=== PATIENT | female | born 1965 | race Caucasian/White ===

== ENCOUNTER 2018-12-26 14:07 | Emergency (ER) | payer MEDICAID ==
[~2018-12-26] VITALS: Ht 160 cm; Wt 77.1 kg
[2018-12-26 14:10] VITALS: BP_SYST 147
[2018-12-26] MEDS ORDERED: traMADol HCL HCL 50 MG TABLET (ULTRAM) PO ONE (16:15)
[2018-12-26 16:31] VITALS: BP_SYST 147
== END 2018-12-26 16:30 | disposition home or self-care (01) ==
LOC: SED 14:07
DX: M65.331 Trigger finger, right middle finger (principal); E78.00 Pure hypercholesterolemia, unspecified; I10 Essential (primary) hypertension; Z86.79 Personal history of other diseases of the circulatory system
CPT/HCPCS: 99283

== ENCOUNTER 2020-07-12 15:54 | Emergency (ER) | payer MEDICAID ==
[~2020-07-12] VITALS: Ht 160 cm; Wt 77.1 kg
[2020-07-12 16:02] VITALS: BP_SYST 164
--- NOTE | 2020-07-12 16:03 | NUR ---
Shivani bunch in ED - 07/12/20 at 1610 by SDEDTD DANNY Marquez at bedside examining patient.
--- NOTE | 2020-07-12 16:06 | NUR ---
Patient to ER bed 7 to gown for evaluation. Side rails up. Report given to TRUMAN Cifuentes.
--- NOTE | 2020-07-12 16:07 | NUR ---
Patient presented to ER C/O ear pain. Patient ambulatory to ER A&ox4, afebrile, pain 7/10, redness to both ears, bilateral swelling behind ears, no drainage noticed. Patient states she has had inner ear pain x7 days with drainage
--- NOTE | 2020-07-12 16:08 | NUR ---
ER Dr. Marquez at bedside examining patient.
[2020-07-12 16:18] VITALS: BP_SYST 162
--- NOTE | 2020-07-12 16:18 | NUR ---
Patient given written and verbal discharge instructions and verbalizes understanding. ER MD discussed with patient the results and treatment provided. Patient in stable condition. ID arm band removed. I Rx of IBUPROFEN, AMOXICILLIN given. Patient educated on pain management and to follow up with PMD. Pain Scale 5/10, PATIENT STATES SHE WILL MEDICATE WITH PERSCRIPTION . Opportunity for questions provided and answered. Medication side effect fact sheet provided.
== END 2020-07-12 16:18 | disposition home or self-care (01) ==
LOC: SED 15:54
DX: H66.93 Otitis media, unspecified, bilateral (principal); I10 Essential (primary) hypertension; E78.00 Pure hypercholesterolemia, unspecified
CPT/HCPCS: 99283

== ENCOUNTER 2020-08-25 17:04 | Emergency (ER) | payer MEDICAID ==
--- NOTE | 2020-08-25 18:14 | NUR ---
Patient left without being seen.
== END 2020-08-25 18:14 | disposition left against medical advice (07) ==
LOC: SED 17:04
DX: M79.643 Pain in unspecified hand (principal); Z53.21 Procedure and treatment not carried out due to patient leaving prior to being seen by health care provider

== ENCOUNTER 2020-10-25 01:04 | Emergency (ER) | payer MEDICAID ==
[~2020-10-25] VITALS: Ht 160 cm; Wt 77.1 kg
[2020-10-25 01:15] VITALS: BP_SYST 189
[2020-10-25] MEDS ORDERED: IBUPROFEN 600 MG TABLET PO ONE (01:30)
== END 2020-10-25 02:30 | disposition home or self-care (01) ==
LOC: SED 01:04
DX: M79.645 Pain in left finger(s) (principal); I10 Essential (primary) hypertension
CPT/HCPCS: 99283

== ENCOUNTER 2020-11-18 22:17 | Emergency (ER) | payer MEDICAID, SELFPAY ==
[~2020-11-18] VITALS: Ht 160 cm; Wt 79.8 kg
[2020-11-18 22:25] VITALS: BP_SYST 164
--- NOTE | 2020-11-18 22:25 | NUR ---
Placed in room 5. Placed on cardiac care nurse, blood pressure machine and pulse oximeter. To gown for exam. Side rails up. Report given to Summer LAUGHLIN/Nirali LAUGHLIN.
--- NOTE | 2020-11-18 22:30 | NUR ---
PT AAO AND AMBULATORY CAME IN TO ER C/O VAGINAL DISCHARGE X 1 WEEK AFTER HAVING SEX WITH PARTNER. PATIENT ALSO COMPLAINED OF PRODUCTIVE COUGH WITH WHITE/GREEN PHLEGM. HAS HISTORY OF CABG X 3 AND [place]. CURRENTLY STATES OF HAVING DISCOMFORT WHEN SHE COUGHS RATING PAIN 2/10 ON THE PAIN SCALE. WAITING FOR MD TO EVALUATE PATIENT.
--- NOTE | 2020-11-18 22:40 | NUR ---
DR. MENA AT BEDSIDE FOR EVALUATION.
[2020-11-18] MEDS ORDERED: ROSU20TA2 PO (22:41)
[2020-11-18] MEDS ORDERED: AMOX-426 PO (22:41)
[2020-11-18] MEDS ORDERED: CLOP75TA32 PO (22:41)
[2020-11-18] MEDS ORDERED: CARV6.2554 PO (22:41)
[2020-11-18] MEDS ORDERED: PHEDM120 PO (22:41)
[2020-11-18] MEDS ORDERED: ISOS30TA6 PO (22:41)
[2020-11-18] MEDS ORDERED: ASPI-859 PO (22:41)
--- NOTE | 2020-11-18 22:46 | NUR ---
PATIENT TAKEN TO XRAY VIA AMBULATORY.
--- NOTE | 2020-11-18 22:50 | NUR ---
PATIENT WAS ABLE TO GIVE URINE SPECIMEN. AMBULATED TO RESTROOM. SPECIMEN SENT TO LAB FOR ANALYSIS.
[2020-11-18 23:26] LABS: BILIRUBIN,URINE NEGATIVE (NEGATIVE); BLOOD, URINE 1+ (NEGATIVE); CLARITY/URINE CLEAR (CLEAR); COLOR,URINE YELLOW (YELLOW); GLUCOSE,URINE NEGATIVE (NEGATIVE); KETONES,URINE NEGATIVE (NEGATIVE); LEUKOCYTE ESTERASE ,URINE 3+ (NEGATIVE); NITRITE, URINE NEGATIVE (NEGATIVE); PH,URINE 5.5 (5.0-8.0); PROTEIN URINE NEGATIVE (NEGATIVE); UROBILINOGEN,URINE 0.2 (0.2-1.0)
[2020-11-18 23:34] LABS: BACTERIA,URINE FEW /HPF (None Seen); TRICHOMONAS,URINE Few /HPF (None Seen); WBC,URINE 20-50 /HPF (0-3)
--- NOTE | 2020-11-19 00:10 | NUR ---
ASSISTED WITH MD POLK WITH PELVIC EXAM. COLLECTED WET MOUNT SPECIMEN AND SENT TO LAB. COLLECTED COVID SOFTIA NASAL SWAB AND SENT TO LAB FOR ANALYSIS.
[2020-11-19] MEDS ORDERED: IPRATROPIUM/ALBUTEROL SULFATE 3 ML AMPUL.NEB (DUONEB) INH ONE (00:30)
[2020-11-19] MEDS ORDERED: IPRATROPIUM/ALBUTEROL SULFATE 3 ML AMPUL.NEB (DUONEB) ONE (00:37)
[2020-11-19] MEDS ORDERED: metroNIDAZOLE 500 MG TABLET PO ONE (00:45)
[2020-11-19] MEDS ORDERED: cefTRIAXone 500 MG in LIDOCAINE 1%, 20 ML MDV 1 ML IM ONE (00:45)
[2020-11-19 00:49] LABS: HEMOGLOBIN 14.9 g/dL (12.0-16.0); MEAN CORPUSCULAR HGB CONC 33 % (32-36)
[2020-11-19] MEDS ORDERED: cefTRIAXone 500 MG VIAL ONE (00:50)
[2020-11-19 00:53] LABS: BASOPHILS # (AUTO) 0.1 K/uL (0.0-0.2); BASOPHILS % (AUTO) 1.1 % (0.0-2.0); EOSINOPHILS # (AUTO) 0.3 K/uL (0.0-0.4); HEMATOCRIT 44.6 % (36-48); LYMPHOCYTES # (AUTO) 1.8 K/uL (1.0-5.5); LYMPHOCYTES % (AUTO) 28.4 % (20.5-51.5); MEAN CORPUSCULAR HEMOGLOBIN 29 pg (27-31); MEAN CORPUSCULAR VOLUME 88 fL (79.0-98.0); MONOCYTES # (AUTO) 0.8 K/uL (0.0-1.0); MONOCYTES % (AUTO) 12.6 % (1.7-9.3); NEUTROPHILS # (AUTO) 3.5 K/uL (1.8-7.7); NEUTROPHILS % (AUTO) 53.9 % (40.0-70.0); PLATELET COUNT (AUTO) 236 K/uL (130-430); RED BLOOD CELL COUNT(AUTO) 5.08 MIL/uL (4.2-6.2); WHITE BLOOD COUNT (AUTO) 6.4 K/uL (4.8-10.8)
[2020-11-19 01:02] LABS: ANION GAP 7 (5-15); CALCIUM 9.4 mg/dL (8.4-11.0); CHLORIDE 106 mmol/L (98-107); GLUCOSE 89 mg/dL (70-99); POTASSIUM 3.8 mmol/L (3.5-5.1); SODIUM SERUM 142 mmol/L (136-145); UREA NITROGEN, BLOOD 7 mg/dL (8-21)
--- NOTE | 2020-11-19 01:02 | NUR ---
REPORT GIVEN TO TRUMAN JEWELL.
[2020-11-19 01:11] LABS: ALANINE AMINOTRANSFERASE 105 U/L (12-78); ALBUMIN 3.5 g/dL (3.4-4.8); ASPARTATE AMINOTRANSFERASE 56 U/L (10-37); GFR AFRICAN AMERICAN 84 mL/min (>90); TOTAL BILIRUBIN 0.3 mg/dL (0.0-1.0)
[2020-11-19] MEDS ORDERED: NITR-85 PO (01:26)
[2020-11-19] MEDS ORDERED: BENZ-16 PO (01:26)
[2020-11-19] MEDS ORDERED: DOXY100C PO (01:26)
--- NOTE | 2020-11-19 01:35 | NUR ---
Dr. Hussein at bedside updating patient on results and POC.
[2020-11-19 01:42] VITALS: BP_SYST 164
--- NOTE | 2020-11-19 01:42 | NUR ---
Patient given written and verbal discharge instructions and verbalizes understanding. ER MD discussed with patient the results and treatment provided. Patient in stable condition. Rx of Tessalon Perle, Doxycycline, and Macrobid given. Opportunity for questions provided and answered. Medication side effect fact sheet provided.
[2020-11-21 12:06] LABS: CHLAMYDIA TRACHOMATIS NAA Negative (Negative); NEISSERIA GONORRHOEAE NAA Negative (Negative)
== END 2020-11-19 01:42 | disposition home or self-care (01) ==
LOC: SED 22:17
DX: J20.9 Acute bronchitis, unspecified (principal); A59.9 Trichomoniasis, unspecified; N39.0 Urinary tract infection, site not specified; Z20.822 Contact with and (suspected) exposure to COVID-19
CPT/HCPCS: 36415; 71045; 80053; 81000; 84484; 85025; 87086; 87210; 87426; 87491; 87591; 93005; 94640; 94760; 96372; 99285; J0696

== ENCOUNTER 2022-07-27 21:16 | Emergency (ER) | payer MEDICAID ==
[~2022-07-27] VITALS: Ht 152.4 cm; Wt 77.1 kg
[~2022-07-27 21:16] MED LIST: AMOX-426 PO; ASPI-859 PO; BENZ-16 PO; CARV6.2554 PO; CLOP75TA32 PO; DOXY100C PO; ISOS30TA85 PO; NITR-85 PO; PHEDM120 PO; ROSU20TA2 PO
[2022-07-27 21:31] VITALS: BP_SYST 163
--- NOTE | 2022-07-27 21:40 | NUR ---
PT FROM HOME WITH C/O OF RIGHT FOOT EDEMA AND CHRONIC LEFT HIP PAIN. PT REPORTS THE PAIN WORSENED TONIGHT. SUPERFICIAL ABRASION TO THE RIGHT FOOT, BLEEDING CONTROLLED.
--- NOTE | 2022-07-28 00:17 | NUR ---
Patient to ER bed 07 to gown for evaluation. Side rails up. Report given to ERIN LAUGHLIN.
--- NOTE | 2022-07-28 00:27 | NUR ---
got the report from triage. pt alert and orientedx 4 is complaining about the pain on the hip. cooperative and follow command.
[2022-07-28] MEDS ORDERED: KETOROLAC TROMETHAMINE 60 MG/2 ML VIAL IM ONE (00:45)
[2022-07-28] MEDS ORDERED: IBUP-1971 PO (01:16)
[2022-07-28] MEDS ORDERED: CEPH-548 PO (01:16)
[2022-07-28 01:38] VITALS: BP_SYST 144
--- NOTE | 2022-07-28 01:40 | NUR ---
Patient given written and verbal discharge instructions and verbalizes understanding. ER MD discussed with patient the results and treatment provided. Patient in stable condition. ID arm band removed. IV catheter removed intact and dressing applied, no active bleeding. Rx of given. Patient educated on pain management and to follow up with PMD. Pain Scale 0/10 Opportunity for questions provided and answered. Medication side effect fact sheet provided.
== END 2022-07-28 01:40 | disposition home or self-care (01) ==
LOC: SED 21:16
DX: L03.115 Cellulitis of right lower limb (principal); M25.552 Pain in left hip; J45.909 Unspecified asthma, uncomplicated; I10 Essential (primary) hypertension; Z88.8 Allergy status to other drugs, medicaments and biological substances; Z79.899 Other long term (current) drug therapy
CPT/HCPCS: 99283; 96372; J1885

== ENCOUNTER 2022-08-09 09:36 | Emergency (ER) | payer MEDICAID ==
[~2022-08-09] VITALS: Ht 152.4 cm; Wt 77.1 kg
[~2022-08-09 09:36] MED LIST changes: +CEPH-548 PO; +IBUP-1971 PO
[2022-08-09 09:41] VITALS: BP_SYST 157
--- NOTE | 2022-08-09 09:41 | NUR ---
Patient triaged and placed in waiting room. VSS and patient appears in no acute distress at this time. Accompanied by BOYFRIEND, awaiting available bed, and MD notified of need for MSE.
--- NOTE | 2022-08-09 09:52 | NUR ---
ER DR. PINEDO EXAMINING PT IN TRIAGE
[2022-08-09] MEDS ORDERED: TRAM50TA2 PO (11:09)
[2022-08-09] MEDS ORDERED: NAPR-688 PO (11:09)
[2022-08-09 11:20] VITALS: BP_SYST 141
--- NOTE | 2022-08-09 11:20 | NUR ---
Patient given written and verbal discharge instructions and verbalizes understanding. ER MD discussed with patient the results and treatment provided. Patient in stable condition. ID arm band removed. Rx of NAPROXEN AND TRAMADOL given. Patient educated on pain management and to follow up with PMD. Pain Scale 0/10. Opportunity for questions provided and answered. Medication side effect fact sheet provided.
== END 2022-08-09 11:20 | disposition home or self-care (01) ==
LOC: SED 09:36
DX: R07.9 Chest pain, unspecified (principal); R05.9 Cough, unspecified; R09.81 Nasal congestion; J45.909 Unspecified asthma, uncomplicated; I11.0 Hypertensive heart disease with heart failure; I50.9 Heart failure, unspecified; Z88.8 Allergy status to other drugs, medicaments and biological substances; Z79.899 Other long term (current) drug therapy
CPT/HCPCS: 36415; 71045; 84484; 93005; 99285